=== PATIENT | female | born 1975 | race Hispanic/Latino ===

== ENCOUNTER → 2019-06-16 | Outpatient (CLI) | payer OTHER ==
--- NOTE | 2019-06-16 11:55 | Diagnostic Imaging Report ---
EXAMINATION: CERVICAL SPINE 4 OR 5 VIEWS INDICATION: Neck pain COMPARISON: None FINDINGS: AP, lateral, oblique and odontoid view images of the cervical spine were obtained. There is mild reversal of the normal cervical lordosis. No acute fracture or dislocation. Minimal retrolisthesis at C5-6. The prevertebral soft tissues are normal in thickness. Visualized portions of the paranasal sinuses are clear. Minimally visualized lung apices are clear. IMPRESSION: No acute osseous injury. Mild reversal of normal cervical lordosis as above. Signed by: Celina Tristan MD on 06/16/2019 11:51 AM
== END ==
LOC: RAD 10:47
PROVIDERS: ATTEND Family Medicine
DX: M54.2 Cervicalgia (principal)
CPT/HCPCS: 72050